=== PATIENT | male | born 1990 | race Caucasian/White ===

== ENCOUNTER 2016-12-19 15:37 | Emergency (ER) | payer OTHER ==
[~2016-12-19] VITALS: Wt 123.5 kg
[2016-12-19] MEDS ORDERED: KETOROLAC 30 MG INJ IV STA (15:51)
[2016-12-19] MEDS ORDERED: ONDANSETRON 4 MG INJ IV STA (15:51)
[2016-12-19] MEDS ORDERED: SOD CHLORIDE 0.9% 1,000 ML IV STA (15:51)
[2016-12-19 16:50] LABS: BASOPHIL # 0.1 10^3/ul (0.0-0.1); BASOPHILS % 0.3 % (0.0-2.0); EOSINOPHILS % 0.1 % (0.0-7.0); HEMATOCRIT 45.4 % (42.0-52.0); LYMPHOCYTES # 2.3 10^3/ul (0.8-2.9); LYMPHOCYTES % 13.8 % (15.0-51.0); MEAN CORPUSCULAR HEMOGLOBIN 29.2 pg (29.0-33.0); MEAN CORPUSCULAR VOLUME 88.3 fl (82.0-101.0); MEAN PLATELET VOLUME 10.8 fl (7.4-10.4); MONOCYTE # 1.4 10^3/ul (0.3-0.9); MONOCYTES % 8.2 % (0.0-11.0); NEUTROPHIL # 12.8 10^3/ul (1.6-7.5); NEUTROPHILS % 77.2 % (39.0-77.0); PLATELET COUNT 448 10^3/UL (140-415); RED BLOOD COUNT 5.14 10^6/ul (4.70-6.10); RED CELL DISTRIBUTION WIDTH 14.1 % (11.5-14.5); WHITE BLOOD COUNT 16.5 10^3/ul (4.8-10.8)
[2016-12-19 17:10] LABS: ALBUMIN 4.8 g/dl (3.3-4.9); ALBUMIN/GLOBULIN RATIO 1.14; BILIRUBIN,INDIRECT 0.5 mg/dl (0-1.1); BILIRUBIN,TOTAL 0.5 mg/dl (0.2-1.3); CALCIUM 10.1 mg/dl (8.4-10.2); CREATININE 0.94 mg/dl (0.61-1.24); POTASSIUM 4.5 mmol/L (3.5-5.1)
[2016-12-19 17:13] LABS: ADD UMIC YES; UR ASCORBIC ACID NEGATIVE (NEGATIVE); UR BACTERIA FEW /HPF (NONE SEEN); UR BILIRUBIN (Dip) NEGATIVE (NEGATIVE); UR BLOOD (Dip) 3+ mg/dL (NEGATIVE); UR CLARITY SLIGHTLY CLOUDY (CLEAR); UR COLOR AMBER (YELLOW); UR GLUCOSE (Dip) NEGATIVE (NEGATIVE); UR KETONES (Dip) TRACE mg/dL (NEGATIVE); UR LEUKOCYTE ESTERASE (Dip) NEGATIVE Leu/ul (NEGATIVE); UR MUCUS MANY /HPF (NONE SEEN); UR NITRITE (Dip) NEGATIVE (NEGATIVE); UR RBC > 182 /HPF (0-5); UR SPECIFIC GRAVITY (Dip) 1.024 (1.003-1.030); UR TOTAL PROTEIN (Dip) 2+ mg/dl (NEGATIVE); UR UROBILINOGEN (Dip) NEGATIVE (NEGATIVE)
--- NOTE | 2016-12-19 17:19 | RADRPT ---
PROCEDURE: CT Abdomen and Pelvis without contrast. CLINICAL INDICATION: Abdominal pain TECHNIQUE: CT of the abdomen and pelvis was performed on a multi-detector scanner without IV contr ast. Coronal and sagittal images were reformatted from the axial data set. One or more of the foll owing dose reduction techniques were used: automated exposure control, adjustment of the mA and/or k V according to patient size, use of iterative reconstruction technique. CTDI = 23.27 mGy. DLP = 148 0.69 mGy-cm. COMPARISON: CT, 03/28/2009 FINDINGS: CT abdomen: The lung bases are clear. The heart size is normal, without pericardial effusion. The liver is fat ty infiltrated, without evidence of focal mass. Gallbladder, biliary tree, pancreas, adrenal glands and right kidney are unremarkable. Obstructive 4 mm calculus is identified at the left UVJ (3-164) , causing mild hydroureteronephrosis. The patient is status post splenectomy. Metallic shrapnel is present within left upper quadrant abdominal wall fat. The stomach is grossly unremarkable. The aorta is of normal caliber. There is no retroperitoneal lymphadenopathy. The antonette hepatis reg ion is clear. CT pelvis: No bowel obstruction, free intraperitoneal air or abscess is identified. The patient is status post partial transverse colectomy, with unremarkable appearance of the surgical staple line. The append ix is well visualized and normal. There is no diverticulosis, diverticulitis or colitis. Urinary b ladder is grossly unremarkable. No pelvic mass, free fluid or lymphadenopathy is identified. The surrounding osseous structures are remarkable for degenerative enthesopathy of the spine. No os teolytic or osteoblastic lesion is detected. IMPRESSION: 1. Obstructive 4 mm calculus is present at the left UVJ, causing mild hydroureteronephrosis. 2. Hepatic steatosis is noted. 3. The patient is status post splenectomy. Metallic shrapnel is present within left upper quadrant abdominal wall fat, presumably chronic sequela of old trauma. 4. No mass or lymphadenopathy is identified. RPTAT: EE .Bienvenido Matute MD, MD Date Time Electronically viewed and signed by .Bienvenido Matute MD, MD on 12/19/2016 17:18 .R/
[2016-12-19] MEDS ORDERED: IBUP-1542 PO (17:22)
[2016-12-19] MEDS ORDERED: HYDR-906 PO (17:22)
[2016-12-19] MEDS ORDERED: ONDA-43 PO (17:23)
[2016-12-19] MEDS ORDERED: TAMS-14 PO (17:23)
--- NOTE | 2016-12-19 17:33 | ERD ---
ER Documentation Chief Complaint Date/Time DATE: 12/19/16 TIME: 17:30 Chief Complaint ABD PAIN, NO NAUSEA OR VOMITING, NO DIARRHEA, PREVIOUS EXPLOR LAP HPI This is a 18-year-old male that presents to the ER with lower abdominal pain that radiates to bilateral flanks. Patient states that pain is severe and constant is worse whenever he breathes in. Patient states he is unable to find a comfortable position. Patient denies any urinary frequency or dysuria. He denies any hematuria. He denies any nausea vomiting or diarrhea. Patient denies any fevers or chills. He denies any trauma. Patient denies any chest pain shortness of breath. ROS 12 point review of systems was done, all negative except per HPI. Medications Home Meds Active Scripts Ondansetron Hcl* (Zofran*) 4 Mg Tab, 4 MG PO Q4H Y for NAUSEA AND OR VOMITING, # 5 TAB Prov:JANETT LARKIN 12/19/16 Tamsulosin Hcl* (Flomax*) 0.4 Mg Cap.er.24h, 0.4 MG PO QHS, #5 CAP Prov:JANETT LARKIN 12/19/16 Ibuprofen* (Motrin*) 600 Mg Tab, 600 MG PO Q6, #30 TAB Prov:JANETT LARKIN C 12/19/16 Hydrocodone/Acetaminophen (Crum 5-325 Tablet) 1 Each Tablet, 1 TAB PO Q6H Y for PAIN, #20 TAB Prov:CHAYA,JANETT C 12/19/16 Allergies Allergies: Coded Allergies: No Known Allergy (Unverified , 12/19/16) PMhx/Soc Medical and Surgical Hx: pt denies Medical Hx, pt denies Surgical Hx Hx Alcohol Use: No Hx Substance Use: No Hx Tobacco Use: No Smoking Status: Never smoker Physical Exam Vitals Vital Signs Date Time Temp Pulse Resp B/P Pulse Ox O2 Delivery O2 Flow Rate FiO2 12/19/16 15:38 98.3 91 18 136/86 97 Physical Exam GENERAL: The patient is well developed and appropriate for usual state of health , in no apparent distress. HEENT: Atraumatic. CHEST: Clear to auscultation bilaterally. There are no rales, wheezes or rhonchi. HEART: Regular rate and rhythm. No murmurs, clicks, rubs or gallops. ABDOMEN: Soft, nontender and nondistended. Good bowel sounds. No rebound or guarding. No gross peritonitis. No gross organomegaly or masses. No Christianson sign or McBurney point tenderness. BACK: No midline or flank tenderness. NEURO: Alert and oriented. Result Diagram: 12/19/16 1635 12/19/16 1635 Results 24 hrs Laboratory Tests Test 12/19/16 16:00 12/19/16 16:35 Urine Color NABIL Urine Clarity SLIGHTLY CLOUDY Urine pH 5.0 Urine Specific [place] 1.024 Urine Ketones TRACEmg/dL Urine Nitrite NEGATIVEmg/dL Urine Bilirubin NEGATIVEmg/dL Urine Urobilinogen NEGATIVEmg/dL Urine Leukocyte Esterase NEGATIVELeu/ul Urine Microscopic RBC > 182/HPF Urine Microscopic WBC 6/HPF Urine Bacteria FEW/HPF Urine Mucus MANY/HPF Urine Hemoglobin 3+mg/dL Urine Glucose NEGATIVEmg/dL Urine Total Protein 2+mg/dl White Blood Count 16.510^3/ul Red Blood Count 5.1410^6/ul Hemoglobin 15.0g/dl Hematocrit 45.4% Mean Corpuscular Volume 88.3fl Mean Corpuscular Hemoglobin 29.2pg Mean Corpuscular Hemoglobin Concent 33.0g/dl Red Cell Distribution Width 14.1% Platelet Count 49467^3/UL Mean Platelet Volume 10.8fl Neutrophils % 77.2% Lymphocytes % 13.8% Monocytes % 8.2% Eosinophils % 0.1% Basophils % 0.3% Nucleated Red Blood Cells % 0.0/100WBC Neutrophils # 12.810^3/ul Lymphocytes # 2.310^3/ul Monocytes # 1.410^3/ul Eosinophils # 0.010^3/ul Basophils # 0.110^3/ul Nucleated Red Blood Cells # 0.010^3/ul Sodium Level 145mmol/L Potassium Level 4.5mmol/L Chloride Level 103mmol/L Carbon Dioxide Level 25mmol/L Anion Gap 22 Blood Urea Nitrogen 12mg/dl Creatinine 0.94mg/dl Glucose Level 194mg/dl Calcium Level 10.1mg/dl Total Bilirubin 0.5mg/dl Direct Bilirubin 0.00mg/dl Indirect Bilirubin 0.5mg/dl Aspartate Amino Transf (AST/SGOT) 41IU/L Alanine Aminotransferase (ALT/SGPT) 59IU/L Alkaline Phosphatase 114IU/L Total Protein 9.0g/dl Albumin 4.8g/dl Globulin 4.20g/dl Albumin/Globulin Ratio 1.14 Lipase 29U/L Current Medications Medications (Trade) Dose Ordered Sig/Rema Route PRN Reason Start Time Stop Time Status Last Admin Dose Admin Sodium Chloride (NS) 1,000 ml @ 1,000 mls/hr Q1H STAT IV 12/19/16 15:51 12/19/16 16:50 DC 12/19/16 16:41 Ondansetron HCl (Zofran Inj) 4 mg ONCE STAT IV 12/19/16 15:51 12/19/16 15:55 DC 12/19/16 16:42 Ketorolac Tromethamine (Toradol) 30 mg ONCE STAT IV 12/19/16 15:51 12/19/16 15:55 DC 12/19/16 16:42 Procedures/MDM Differential diagnosis includes but is not limited to appendicitis, hernia, testicular torsion, UTI, constipation, nephrolithiasis, stone, obstructive stone , epididymitis. This is a 26-year-old male presents to the ER with abdominal pain and flank pain. Patient does have an obstructive stone however patient is afebrile and well-appearing, stone is only 4 mm and has a good chance of passing through. Patient's pain was controlled in the ER and he felt comfortable going home. Patient did have small amount of white blood cells in the urine, will be treated for possible urinary tract infection. He will be sent home with Cipro, Zofran, flomax, ibuprofen, norco. Patient is to follow- up with his primary care doctor within 1-2 days return to ER sooner if symptoms worsen. My medical decision making was discussed with the patient he understands and agrees with plan. Departure Diagnosis: Primary Impression: Kidney stone Condition: Stable Patient Instructions: Kidney Stone W/ Colic Additional Instructions: Call your primary care doctor TOMORROW for an appointment during the next 1-2 days.See the doctor sooner or return here if your condition worsens before your appointment time. JANETT LARKIN Dec 19, 2016 17:33
[2016-12-19 17:45] VITALS: BP 156/94; PULSE 86; RESP 16; TEMP 98.1
== END 2016-12-19 17:45 | disposition home or self-care (01) ==
LOC: FTE 15:37
DX: N20.0 Calculus of kidney (principal)
CPT/HCPCS: 36415; 74176; 80053; 81001; 83690; 85025; 96374; 96375; 99285; J1885; J2405; J7030